=== PATIENT | female | born 2000 | race American Indian/Alaskan Native ===

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

== ENCOUNTER 2021-03-12 11:27 | Emergency (ER) | payer MEDICAID ==
[2021-03-12 12:06] VITALS: BP 118/70; PULSE 79
--- NOTE | 2021-03-12 13:43 | CR ---
PROCEDURE INFORMATION: Exam: XR Nasal Bones Exam date and time: 03/12/2021 1:10 PM Age: 20 years old Clinical indication: Nose pain; Additional info: R/O nasal fracture/dislocation patient headbutted about 5 days ago. TECHNIQUE: Imaging protocol: XR of the nasal bones. Views: Minimum of 3 views COMPARISON: No relevant prior studies available. FINDINGS: Sinuses: Slight increased density right maxillary antrum could be due to fluid or membrane thickening. Bones/joints: Comminuted minimally displaced fracture of the anterior nasal bones. Soft tissues: Unremarkable. IMPRESSION: Comminuted minimally displaced fracture of the anterior nasal bones.
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
== END 2021-03-12 13:58 | disposition home or self-care (01) ==
LOC: DL.ED 11:27
DX: S02.2XXA Fracture of nasal bones, initial encounter for closed fracture (principal); Y04.0XXA Assault by unarmed brawl or fight, initial encounter
CPT/HCPCS: 70160; 99283; 99283-25

== ENCOUNTER 2021-05-13 19:17 | Emergency (ER) | payer MEDICAID ==
[2021-05-13 20:10] VITALS: BP 125/78; PULSE 79
== END 2021-05-13 21:38 | disposition left against medical advice (07) ==
LOC: DL.ED 19:17
DX: R05 Cough (principal); Z53.21 Procedure and treatment not carried out due to patient leaving prior to being seen by health care provider

== ENCOUNTER 2022-09-24 19:41 | Emergency (ER) | payer MEDICAID | END 2022-09-24 20:33 | disposition left against medical advice (07) | LOC: DL.ED 19:41 | DX: Z53.21 Procedure and treatment not carried out due to patient leaving prior to being seen by health care provider (principal) ==

== ENCOUNTER 2022-09-25 20:58 | Emergency (ER) | payer MEDICAID ==
[2022-09-25 23:22] VITALS: BP 117/78; PULSE 90
[2022-09-26 00:07] LABS: RESPIRATORY SYNCYTIAL VIR NAA POSITIVE (NEGATIVE)
[2022-09-26 00:10] LABS: CORONAVIRUS COVID-19 NAA POSITIVE (NEGATIVE)
== END 2022-09-26 01:48 | disposition left against medical advice (07) ==
LOC: DL.ED 20:58
DX: Z53.21 Procedure and treatment not carried out due to patient leaving prior to being seen by health care provider (principal)
CPT/HCPCS: 0241U

== ENCOUNTER 2023-02-03 07:58 | Inpatient (IN) | payer MEDICAID ==
[2023-02-03] MEDS ORDERED: Sodium Chloride 0.9% 10 ML Syringe FLUSH PRN ×2 (09:05→10:07)
[2023-02-03 09:34] LABS: AMPHETAMINES,URINE NEGATIVE (NEGATIVE); BARBITURATES,URINE NEGATIVE (NEGATIVE); BENZODIAZEPINE,URINE NEGATIVE (NEGATIVE); MDMA (ECSTASY), URINE NEGATIVE (NEGATIVE); METHADONE,URINE NEGATIVE (NEGATIVE); METHAMPHETAMINES,URINE NEGATIVE (NEGATIVE); OPIATES,URINE NEGATIVE (NEGATIVE); OXYCODONE,URINE NEGATIVE (NEGATIVE); PHENCYCLIDINE,URINE NEGATIVE (NEGATIVE); TCA,URINE NEGATIVE (NEGATIVE)
[2023-02-03] MEDS ORDERED: Tranexamic Acid 1,000 MG in Sodium Chloride 0.9% 100 ML IV PRN (10:07)
[2023-02-03] MEDS ORDERED: Lidocaine 1% 30 ML SDV INJECT PRN (10:07)
[2023-02-03] MEDS ORDERED: Lactated Ringers 1,000 ML IV ONE (10:07)
[2023-02-03] MEDS ORDERED: Acetaminophen 325 MG Tab PO PRN (10:07)
[2023-02-03] MEDS ORDERED: Misoprostol 400 MCG (4 X 100 MCG TAB) RECTAL PRN (10:07)
[2023-02-03] MEDS ORDERED: Ondansetron 4 MG/2 ML SDV IVPUSH PRN (10:07)
[2023-02-03] MEDS ORDERED: Methylergonovine 0.2 MG/1 ML Amp IM PRN (10:07)
[2023-02-03] MEDS ORDERED: Carboprost Tromethamine 250 MCG/1 ML Amp IM PRN (10:07)
[2023-02-03] MEDS ORDERED: fentaNYL 100 MCG/2 ML SDV IVPUSH PRN (10:07)
[2023-02-03] MEDS ORDERED: Lactated Ringers 1,000 ML IV SCH (10:15)
[2023-02-03] MEDS ORDERED: Oxytocin/Normal Saline 30 UNIT/500 ML BAG IV SCH (10:15)
[2023-02-03] MEDS ORDERED: ePHEDrine 50 MG/ML SDV IVPUSH PRN (11:05)
[2023-02-03] MEDS ORDERED: Phenylephrine HCl In 0.9% NaCl 1 MG/10 ML Syringe IVPUSH PRN (11:05)
[2023-02-03] MEDS ORDERED: Ropivacaine 200 MG in Premix Bag 1 BAG EPIDUR SCH (11:15)
[2023-02-03] MEDS ORDERED: Simethicone 80 MG Tab.Chew PO PRN (13:37)
[2023-02-03] MEDS ORDERED: Witch Hazel Medicated Pads 100/Jar TOP PRN (13:37)
[2023-02-03] MEDS ORDERED: Oxytocin 10 Units/1 ML SDV IM PRN (13:37)
[2023-02-03] MEDS ORDERED: Hydrocortisone 2.5% Crm 30 GM Tube TOP PRN (13:37)
[2023-02-03] MEDS ORDERED: Benzocaine/Menthol 20%-0.5% Spray 78 GM Cannister TOP PRN (13:37)
[2023-02-03] MEDS: Ibuprofen 800 MG Tab PO PRN (21:14)
[2023-02-03] MEDS: Docusate Sodium 100 MG Cap PO PRN (21:16)
[2023-02-04] MEDS: Docusate Sodium 100 MG Cap PO PRN ×2 (07:40→20:58)
[2023-02-04] MEDS: Ibuprofen 800 MG Tab PO PRN ×2 (07:41→20:59)
[2023-02-04] MEDS: Prenatal Multivitamin with Calcium/Folic Acid/Iron Tab PO SCH ×2 (07:41→10:52)
[2023-02-04] MEDS: Acetaminophen 325 MG Tab PO PRN ×2 (07:41→15:37)
[2023-02-05] MEDS: Acetaminophen 325 MG Tab PO PRN (07:48)
[2023-02-05] MEDS: Ibuprofen 800 MG Tab PO PRN (07:48)
[2023-02-05] MEDS: Docusate Sodium 100 MG Cap PO PRN (07:48)
[2023-02-05] MEDS: Prenatal Multivitamin with Calcium/Folic Acid/Iron Tab PO SCH ×2 (07:49→09:22)
[2023-02-05 09:23] VITALS: BP 122/78; PULSE 97
[2023-02-05] MEDS ORDERED: Measles, Mumps & Rubella Vaccine 0.5 ML SDV SUBCUT ONE (10:00)
== END 2023-02-05 09:55 | disposition home or self-care (01) | DRG 833 ==
LOC: DL.OBCHECK 07:58 → DL.OB 09:02 → OBSVTOIN 10:07 → DL.OB 10:07
PROVIDERS: ADMIT Family Medicine; ATTEND Family Medicine
PROC: 3E0134Z Introduction of Serum, Toxoid and Vaccine into Subcutaneous Tissue, Percutaneous Approach (ICD-10-PCS; principal; 2023-02-05)
DX: O99.323 Drug use complicating pregnancy, third trimester (principal); F12.90 Cannabis use, unspecified, uncomplicated; O26.893 Other specified pregnancy related conditions, third trimester; Z23 Encounter for immunization; Z3A.38 38 weeks gestation of pregnancy; Z90.81 Acquired absence of spleen; Z67.41 Type O blood, Rh negative
CPT/HCPCS: 36415; 51702; 59409; 80305-QW; 85027; 90471; 90707; A9270-GY; J2590; J2795; J7120

== ENCOUNTER 2023-05-19 10:23 | Emergency (ER) | payer MEDICAID ==
[2023-05-19] MEDS ORDERED: Ketorolac 30 MG/ML SDV IM ONE (10:35)
[2023-05-19 10:49] VITALS: BP 142/88; PULSE 116
[2023-05-19] MEDS ORDERED: Lidocaine 5% 700 MG Patch TOP ONE (11:08)
[2023-05-19] MEDS ORDERED: Dexamethasone 4 MG/ML SDV IM ONE (11:09)
== END 2023-05-19 11:26 | disposition home or self-care (01) ==
LOC: DL.ED 10:23
DX: S30.1XXA Contusion of abdominal wall, initial encounter (principal); R07.81 Pleurodynia; W10.9XXA Fall (on) (from) unspecified stairs and steps, initial encounter
CPT/HCPCS: 71101; 96372; 99282; 99283; A9270; J1100; J1885

== ENCOUNTER 2024-03-29 02:02 | Inpatient (IN) | payer MEDICAID ==
[2024-03-29] MEDS: Lactated Ringers 1,000 ML IV SCH (04:30)
[2024-03-29 04:44] LABS: HEMATOCRIT 40.9 % (37.0-47.0); HEMOGLOBIN 14.1 g/dL (12.0-16.0); MEAN CORPUSCULAR HEMOGLOBIN 31.3 pg (27.0-34.0); MEAN CORPUSCULAR HGB CONC 34.5 g/dL (33.0-35.0); MEAN CORPUSCULAR VOLUME 90.9 fL (80-100); RED BLOOD CELL COUNT 4.5 10^6/uL (4.2-5.4); WHITE BLOOD CELL COUNT,WBC 8.2 10^3/uL (5.0-10.0)
[2024-03-29 04:50] LABS: AMPHETAMINES,URINE NEGATIVE (NEGATIVE); BARBITURATES,URINE NEGATIVE (NEGATIVE); BENZODIAZEPINE,URINE NEGATIVE (NEGATIVE); MDMA (ECSTASY), URINE NEGATIVE (NEGATIVE); METHADONE,URINE NEGATIVE (NEGATIVE); METHAMPHETAMINES,URINE NEGATIVE (NEGATIVE); OPIATES,URINE NEGATIVE (NEGATIVE); OXYCODONE,URINE NEGATIVE (NEGATIVE); PHENCYCLIDINE,URINE NEGATIVE (NEGATIVE); TCA,URINE NEGATIVE (NEGATIVE)
[2024-03-29] MEDS ORDERED: Carboprost Tromethamine 250 MCG/1 ML Amp IM PRN (04:51)
[2024-03-29] MEDS ORDERED: Misoprostol 400 MCG (4 X 100 MCG TAB) RECTAL PRN (04:51)
[2024-03-29] MEDS ORDERED: Sodium Chloride 0.9% 10 ML Syringe FLUSH PRN ×2 (04:51→11:41)
[2024-03-29] MEDS ORDERED: Tranexamic Acid 1,000 MG in Sodium Chloride 0.9% 100 ML IV PRN (04:51)
[2024-03-29] MEDS ORDERED: Methylergonovine 0.2 MG/1 ML Amp IM PRN (04:51)
[2024-03-29] MEDS ORDERED: fentaNYL 100 MCG/2 ML SDV ONE (06:25)
[2024-03-29] MEDS ORDERED: Phenylephrine HCl In 0.9% NaCl 1 MG/10 ML Syringe IVPUSH PRN (07:05)
[2024-03-29] MEDS ORDERED: ePHEDrine 50 MG/ML SDV IVPUSH PRN (07:05)
[2024-03-29] MEDS ORDERED: Ropivacaine 200 MG in Premix Bag 1 BAG EPIDUR SCH (07:15)
[2024-03-29] MEDS: Ondansetron 4 MG/2 ML SDV IVPUSH PRN (07:43)
[2024-03-29] MEDS: Oxytocin/Normal Saline 30 UNIT/500 ML BAG IV SCH (07:56)
[2024-03-29] MEDS ORDERED: Simethicone 80 MG Tab.Chew PO PRN (11:41)
[2024-03-29] MEDS ORDERED: Benzocaine/Menthol 20%-0.5% Spray 78 GM Cannister TOP PRN (11:41)
[2024-03-29] MEDS ORDERED: Witch Hazel Medicated Pads 100/Jar TOP PRN (11:41)
[2024-03-29] MEDS ORDERED: Hydrocortisone 2.5% Crm 30 GM Tube TOP PRN (11:41)
[2024-03-29] MEDS ORDERED: Oxytocin 10 Units/1 ML SDV IM PRN (11:41)
[2024-03-29] MEDS: Ibuprofen 800 MG Tab PO PRN (16:19)
[2024-03-29] MEDS: Acetaminophen 325 MG Tab PO PRN (16:20)
[2024-03-29] MEDS: Lidocaine 1% 30 ML SDV INJECT ONE (17:28)
[2024-03-29] MEDS: Lactated Ringers 1,000 ML IV ONE (17:28)
[2024-03-29] MEDS: Docusate Sodium 100 MG Cap PO PRN (22:27)
[2024-03-30 06:44] LABS: HEMATOCRIT 39.1 % (37.0-47.0); HEMOGLOBIN 13.2 g/dL (12.0-16.0); MEAN CORPUSCULAR HEMOGLOBIN 31.6 pg (27.0-34.0); MEAN CORPUSCULAR HGB CONC 33.8 g/dL (33.0-35.0); MEAN CORPUSCULAR VOLUME 93.5 fL (80-100); RED BLOOD CELL COUNT 4.18 10^6/uL (4.2-5.4)
[2024-03-30] MEDS: Prenatal Multivitamin with Calcium/Folic Acid/Iron Tab PO SCH (08:02)
[2024-03-31 08:42] VITALS: BP 126/82; PULSE 68
[2024-03-31] MEDS ORDERED: fentaNYL 100 MCG/2 ML SDV IV ONE (15:29)
== END 2024-03-31 15:30 | disposition home or self-care (01) | DRG 807 ==
LOC: DL.OBCHECK 02:02 → DL.OB 04:24 → OBSVTOIN 11:26
PROVIDERS: ADMIT Family Medicine; ATTEND Family Medicine
PROC: 10E0XZZ Delivery of Products of Conception, External Approach (ICD-10-PCS; principal; 2024-03-29)
PROC: 10907ZC Drainage of Amniotic Fluid, Therapeutic from Products of Conception, Via Natural or Artificial Opening (ICD-10-PCS; 2024-03-29)
PROC: 3E0R3BZ Introduction of Anesthetic Agent into Spinal Canal, Percutaneous Approach (ICD-10-PCS; 2024-03-29)
PROC: 00HU33Z Insertion of Infusion Device into Spinal Canal, Percutaneous Approach (ICD-10-PCS; 2024-03-29)
DX: O99.323 Drug use complicating pregnancy, third trimester (principal); Z37.0 Single live birth; Z3A.39 39 weeks gestation of pregnancy; F12.10 Cannabis abuse, uncomplicated
CPT/HCPCS: 36415; 51702; 59025; 59409; 80305-QW; 85027; 87081; A9270-GY; J2405; J2590; J7120

== ENCOUNTER 2025-04-02 10:17 | Emergency (ER) | payer MEDICAID ==
[2025-04-02] MEDS: Lidocaine 2% 20 ML MDV ONE (10:51)
[2025-04-02] MEDS: Ketorolac 30 MG/ML SDV IM ONE (10:51)
[2025-04-02 12:41] VITALS: BP 132/71; PULSE 64
== END 2025-04-02 12:37 | disposition home or self-care (01) ==
LOC: DL.ED 10:17
DX: G43.909 Migraine, unspecified, not intractable, without status migrainosus (principal); Z90.49 Acquired absence of other specified parts of digestive tract; Z79.899 Other long term (current) drug therapy
CPT/HCPCS: 70450; 96372; 99284; J1885; J2003; 99283

== ENCOUNTER 2025-04-03 05:47 | Emergency (ER) | payer MEDICAID ==
[2025-04-03] MEDS: Metoclopramide 10 MG/2 ML SDV IM ONE (06:37)
[2025-04-03] MEDS: Ketorolac 30 MG/ML SDV IM ONE (06:37)
[2025-04-03] MEDS: diphenhydrAMINE 50 MG Cap PO ONE (06:37)
[2025-04-03 06:43] VITALS: BP 113/76; PULSE 89
== END 2025-04-03 06:45 | disposition home or self-care (01) ==
LOC: DL.ED 05:47
DX: G43.109 Migraine with aura, not intractable, without status migrainosus (principal); F07.81 Postconcussional syndrome; Z79.899 Other long term (current) drug therapy
CPT/HCPCS: 96372; 99283; 99284; J1885; J2765; Q0163